=== PATIENT | male | born 1985 | race Caucasian/White ===

== ENCOUNTER 2018-10-21 14:35 | Emergency (ER) | payer OTHER ==
--- NOTE | 2018-10-21 14:37 | PDOC ---
History of Present Illness - General Stated Complaint: L SIDE RIBS PAIN Time Seen by Provider: 10/21/18 14:37 History Source: Patient Exam Limitations: No Limitations - History of Present Illness Initial Comments: 10/21/18 15:26 33 yo M with no past medical history presents to the emergency department with left sided rib pain that has been ongoing since Sunday after a fall. Per the patient, [place], hitting the left lower side of his chest against a wooden post. He states after it occurred he had pain that was worsened with deep breaths. Per the patient, he denies the following: headache, LOC, nausea, vomiting, chest pain, dysuria, diarrhea, leg pain/ swelling, and hematuria. Allergies: Aspirin Social: Endorses tobacco, alcohol. Past History - Past Medical History Allergies/Adverse Reactions: Allergies Allergy/AdvReac Type Severity Reaction Status Date / Time aspirin Allergy Unknown Verified 10/21/18 14:45 Home Medications: Ambulatory Orders NK [No Known Home Medication] 10/21/18 Review of Systems - Review of Systems Able to Perform ROS?: Yes Is the patient limited [place] proficient: No Constitutional: No: Chills, Diaphoresis, Fever, Weakness HEENTM: No: Eye Pain, Ear Pain, Nose Pain, Throat Pain, Mouth Pain Respiratory: No: Cough, Shortness of Breath, SOB with Exertion Cardiac (ROS): No: Chest Pain, Lightheadedness, Palpitations, Syncope, Chest Tightness ABD/GI: No: Constipated, Diarrhea, Nausea, Rectal Bleeding, Vomiting, Tarry Stools : No: Burning, Dysuria, Hematuria, Incontinence Musculoskeletal: No: Back Pain, Joint Pain, Neck Pain Integumentary: No: Bruising, Erythema, Rash Neurological: No: Headache, Numbness, Tingling, Tremors Psychiatric: No: Change in Appetite Endocrine: No: Unexplained Weight Gain Hematologic/Lymphatic: No: Anemia *Physical Exam - Physical Exam General Appearance: Yes: Nourished, Appropriately Dressed. No: Apparent Distress, Intoxicated HEENT: positive: EOMI, DEBORAH, Normal Voice, Symmetrical, Pharynx Normal. negative: Pale Conjunctivae, Scleral Icterus (R), Scleral Icterus (L), Muffled/ Hoarse voice, Pharyngeal Erythema, Tonsillar Exudate Neck: positive: Trachea midline, Supple. negative: Tender, Lymphadenopathy (R) , Lymphadenopathy (L), Tender lateral, Tender midline Respiratory/Chest: positive: Chest Tender (left ribs 8-10th ribs anterior axillary line), Lungs Clear, Normal Breath Sounds. negative: Respiratory Distress, Accessory Muscle Use, Crackles, Rales, Rhonchi, Stridor, Wheezing Cardiovascular: positive: Regular Rhythm, Regular Rate, S1, S2. negative: Systolic Murmur Gastrointestinal/Abdominal: positive: Normal Bowel Sounds, Flat, Soft. negative : Tender Lymphatic: negative: Adenopathy Musculoskeletal: positive: Normal Inspection. negative: CVA Tenderness, Vertebral Tenderness Extremity: positive: Normal Capillary Refill, Normal Inspection, Normal Range of Motion. negative: Tender, Swelling, Calf Tenderness Integumentary: positive: Normal Color, Dry, Warm. 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 negative: EOM Palsy, Facial Droop , Numbness, Sensory Deficit Medical Decision Making - Medical Decision Making 33 yo M with no past medical history presents to the emergency department with left sided rib pain that has been ongoing since Sunday after a fall. Initial vitals Initial Vital Signs Temp Pulse Resp BP Pulse Ox 98.4 F 99 H 18 175/92 H 100 10/21/18 14:36 10/21/18 14:36 10/21/18 14:36 10/21/18 14:36 10/21/18 14:36 WOrk up: suspect rib fractures. will order rib series and chest xray to rule out ptx rib xray negative. chest xray negative for fracture and ptx dispo Discharge *DC/Admit/Observation/Transfer Diagnosis at time of Disposition: Rib pain on left side - Discharge Dispostion Disposition: HOME Condition at time of disposition: Stable Decision to Admit order: No - Referrals Referrals: [facility] [place] [Provider Group] - Patient Instructions Printed Discharge Instructions: DI for Rib Contusion Additional Instructions: You were seen in the emergency department for the evaluation of your rib pain. Your xray was grossly negative. Please return to the emergency department for evaluation of your rib pain if it does not get better within 5 days. Please take tylenol as directed on the label. Thank you. Your blood pressure was elevated. Please follow up with your primary medical doctor within 3 days after discharge for follow up care and management. - Post Discharge Activity Forms/Work/School Notes: Back to Work
[2018-10-21 14:52] VITALS: BMI 32.8
[2018-10-21] MEDS ORDERED: LIDOCAINE 5% TOPICAL PATCH TP ONE (14:59)
[2018-10-21] MEDS ORDERED: ACETAMINOPHEN 325 MG TABLET (FP) PO ONE (15:00)
[2018-10-21] MEDS ORDERED: LIDOCAINE 5% TOPICAL PATCH ONE (15:02)
[2018-10-21] MEDS ORDERED: ACETAMINOPHEN 500 MG TABLET (FP) ONE (15:02)
[2018-10-21 15:52] VITALS: BP 163/93; PULSE 93; TEMP 98.3
--- NOTE | 2018-10-21 16:35 | PDOC ---
Attending Attestation - Resident Resident Name: Stanley Boothe - ED Attending Attestation I have performed the following: I have examined & evaluated the patient, The case was reviewed & discussed with the resident, I agree w/resident's findings & plan, Exceptions are as noted - HPI HPI: 10/21/18 16:35 Agree with resident HPI - Physicial Exam PE: 10/21/18 16:35 GENERAL: Awake, alert, and fully oriented, in no acute distress. Ambulating in ED comfortably. HEAD: No signs of trauma EYES: PERRLA, EOMI, sclera anicteric, conjunctiva clear ENT: Auricles normal inspection, hearing grossly normal, nares patent, oropharynx clear without exudates. Moist mucosa NECK: Normal ROM, supple, no lymphadenopathy, JVD, or masses LUNGS: Breath sounds equal, clear to auscultation bilaterally. No wheezes, and no crackles HEART: Regular rate and rhythm, normal S1 and S2, no murmurs, rubs or gallops\\ CHEST: +ttp to L 8th/9th rib lateral to the mid clavicular line. No step offs, deformities, crepitus ABDOMEN: Soft, nontender, normoactive bowel sounds. No guarding, no rebound. No masses EXTREMITIES: Normal range of motion, no edema. No clubbing or cyanosis. No cords, erythema, or tenderness NEUROLOGICAL: Normal speech, cranial nerves intact, negative pronator drift, 5/ 5 strength in all 4 extremities, normal sensation to light touch in all 4 extremities, normal cerebellar exam, normal gait, normal tone SKIN: Warm, Dry, normal turgor, no rashes or lesions noted. - Medical Decision Making 10/21/18 15:36 33yo M presents to the ED with 3 days of L ant rib pain after direct impact from a fall DDx includes rib contusion vs fracture CXR/rib series obtained - negative on my read but radiology read pending Feels better after tylenol and lidoderm patch Pt does not want to wait for results as he has a job interview Instructed pt to return if pain is not getting better as he may need a CT to better r/o rib fracture Also, pt's BP elevated in ED - he denies any sxs of CP, SOB, headache, weakness/ numbness, blurry vision States his BP is "always on the higher side" Instricted pt tp f/u with his PMD as he may need to be on HTN medications Pt expresses understanding I discussed the physical exam findings, ancillary test results and final diagnoses with the patient. I answered all of the patient's questions. The patient was satisfied with the care received and felt comfortable with the discharge plan and treatment plan. The patient will call their primary care physician within 24 hours to arrange follow-up and will return to the Emergency Department with any new, persistent or worsening symptoms. Final read XR negative Likely rib contusion Pt was given incentive spirometer prior to DC
[2018-10-21] MEDS ORDERED: LIDOCAINE PATCH REMOVAL MC SCH (22:00)
== END 2018-10-21 16:03 | disposition home or self-care (01) ==
LOC: FER 14:35
DX: R07.81 Pleurodynia (principal)
CPT/HCPCS: 71046-TC-FY; 71101-TC-LT-FY; 99282-25